=== PATIENT | female | born 1945 | race Two or more races ===

== ENCOUNTER 2023-01-07 17:10 | Emergency (ER) | payer OTHER ==
[~2023-01-07] VITALS: Ht 162.6 cm; Wt 61.7 kg
[2023-01-07] MEDS ORDERED: ZESTRIL20 MG PO (17:26)
[2023-01-07] MEDS ORDERED: CARAFATE1 GM PO (17:26)
[2023-01-07] MEDS ORDERED: TOPROL XL25 M1 PO (17:27)
[2023-01-07] MEDS ORDERED: EZALLOR SPRINKLE5 MG PO (17:27)
[2023-01-07] MEDS ORDERED: GLUMETZA500 MG PO (17:27)
[2023-01-07] MEDS ORDERED: GRALISE600 MG PO (17:28)
[2023-01-07] MEDS ORDERED: ALPRAZOLAM OD0.25 MG PO (17:28)
[2023-01-07] MEDS ORDERED: SERTRALINE20 MG/1 ML PO (17:28)
== END 2023-01-07 22:04 | disposition home or self-care (01) ==
LOC: ER 17:10
DX: N39.0 Urinary tract infection, site not specified (principal); E11.9 Type 2 diabetes mellitus without complications; Z79.84 Long term (current) use of oral hypoglycemic drugs; Z88.0 Allergy status to penicillin

== ENCOUNTER 2025-06-28 10:23 | Emergency (ER) | payer OTHER ==
[~2025-06-28] VITALS: Ht 162.6 cm; Wt 64.4 kg
[~2025-06-28 10:23] MED LIST: ALPRAZOLAM OD0.25 MG PO; CARAFATE1 GM PO; EZALLOR SPRINKLE5 MG PO; GLUMETZA500 MG PO; GRALISE600 MG PO; SERTRALINE20 MG/1 ML PO; TOPROL XL25 M1 PO; ZESTRIL20 MG PO
[2025-06-28] MEDS ORDERED: GLIPIZIDE XL10 MG (11:09)
[2025-06-28] MEDS ORDERED: HYOSCYAMINE SULFATE 0.125 MG TAB.SUBL SL ONE (11:45)
[2025-06-28 12:10] LABS: BASO % 0.4 % (0.1-1.2); EOS # 0.02 (0.04-0.54); EOS % 0.2 % (0.7-7.0); LYMPH # 2.03 (1.18-3.74); LYMPH % 16.8 % (19.3-53.1); MEAN PLATELET VOLUME 9.80 fl (9.4-12.4); MONO # 1.37 (0.24-0.82); MONO % 11.3 % (4.7-12.5); NEUT # 8.58 (1.56-6.13); NEUT % 71.0 % (34.0-71.1); RED CELL DISTRIBUTION WIDTH 14.2 % (11.6-14.4)
[2025-06-28 13:17] LABS: URINE APPEARANCE Clear; URINE BILIRRUBIN Negative (NEGATIVE); URINE BLOOD Negative; URINE COLOR Dark Yellow; URINE GLUCOSE Negative (NEGATIVE); URINE KETONE Trace (NEGATIVE); URINE LEUKOCYTE Small; URINE NITRATE Positive; URINE PROTEIN Trace (NEGATIVE); URINE UROBILINOGEN 0.2 E.U./dl
[2025-06-28 13:22] LABS: URINE EPITHELIAL CELLS 16.1 uL (0.0-38.8); URINE RBC 8.5 uL (0.0-20.8); URINE WBC 127.9 uL (0.0-23.2)
[2025-06-28] MEDS ORDERED: KETOROLAC TROMETHAMINE 30 MG VIAL IV ONE (13:30)
[2025-06-28 13:56] LABS: URINE BACTERIA > 9821.5 uL (0.0-1933); URINE CAST 0.14 uL (0.0-1.40)
== END 2025-06-28 20:48 | disposition home or self-care (01) ==
LOC: ER 10:23
PROVIDERS: Emergency Medicine
DX: K57.92 Diverticulitis of intestine, part unspecified, without perforation or abscess without bleeding (principal); N39.0 Urinary tract infection, site not specified; R10.9 Unspecified abdominal pain; I10 Essential (primary) hypertension; E11.9 Type 2 diabetes mellitus without complications; Z79.84 Long term (current) use of oral hypoglycemic drugs; Z88.2 Allergy status to sulfonamides
CPT/HCPCS: 36415; 74177; 96365; 99284; J1885; Q9965